=== PATIENT | female | born 1960 ===

== ENCOUNTER 2024-05-29 06:28 | Day surgery (SDC) | payer OTHER ==
[~2024-05-29 06:28] MED LIST: DAFLONEX-XL 11300 MG PO; METFORMIN HCL500 M3 PO; NAPROXEN SODIU220 M2 PO; SYNTHROID200 MCG PO
[2024-05-29] MEDS ORDERED: METRONIDAZOLE/SODIUM CHLORIDE 500 MG/100 ML PIGGYBACK IV ONE (08:47)
[2024-05-29] MEDS ORDERED: CEFTRIAXONE SODIUM 2,000 MG VIAL ONE (08:47)
[2024-05-29] MEDS ORDERED: POVIDONE-IODINE 118 ML BOTT TOP ONE (09:28)
[2024-05-29] MEDS ORDERED: DIBUCAINE 30 GM TUBE ONE (09:28)
[2024-05-29] MEDS ORDERED: LIDOCAINE HCL 1%/EPINEPHRINE 20ML VIAL IJ ONE (09:28)
[2024-05-29] MEDS ORDERED: BUPIVACAINE HCL/Mpf 0.5% 10ML VIAL ONE (09:28)
[2024-05-29] MEDS ORDERED: HEMOSTATIC MATRIX 1 KIT KIT TOP ONE (09:28)
== END 2024-05-29 15:50 | disposition home or self-care (01) ==
LOC: CIR.AMB 06:28
PROVIDERS: ATTEND Colon & Rectal Surgery
DX: D37.5 Neoplasm of uncertain behavior of rectum (principal); K64.2 Third degree hemorrhoids; K62.4 Stenosis of anus and rectum; E11.9 Type 2 diabetes mellitus without complications; E03.9 Hypothyroidism, unspecified